=== PATIENT | female | born 1980 | race Asian ===

== ENCOUNTER 2023-06-03 18:23 | Emergency (ER) | payer OTHER ==
[2023-06-03] MEDS ORDERED: MECLIZINE HCL 25 MG TABLET (FP) PO ONE (19:36)
[2023-06-03 19:48] VITALS: BP 125/75; PULSE 83; RESP 16; TEMP 98.3; BMI 22.8
== END 2023-06-03 20:15 | disposition home or self-care (01) ==
LOC: FER 18:23
DX: R42 Dizziness and giddiness (principal); R11.0 Nausea
CPT/HCPCS: 99283-25